=== PATIENT | female | born 1955 | race Caucasian/White ===

== ENCOUNTER → 2017-08-02 | Outpatient (CLI) | payer BC ==
[~2017-08-02] MED LIST: ALEVE220 MG PO; CLARITIN-D 24 H1 TA1 PO; FLEXERIL PO; LEXAPRO 10 MG T10 M1 PO; NORCO 5-325 TA1 EACH PO; OMEPRAZOLE40 MG; PERCOCET 5-3251 EACH PO; PHENERGAN 25 MG25 M1 PO; RANITIDINE HCL300 M1; [UNRECOGNIZED DRUG - OTHER] PO
== END ==
LOC: M.RAD 11:14
DX: S16.1XXA Strain of muscle, fascia and tendon at neck level, initial encounter (principal); M48.02 Spinal stenosis, cervical region; M25.78 Osteophyte, vertebrae; X58.XXXA Exposure to other specified factors, initial encounter; Y93.89 Activity, other specified; Y92.89 Other specified places as the place of occurrence of the external cause; Y99.8 Other external cause status